=== PATIENT | male | born 1940 | race Caucasian/White ===

== ENCOUNTER 2018-11-25 13:39 | Emergency (ER) | payer MEDICARE, OTHER ==
[2018-11-25] MEDS ORDERED: Lidocaine 1% 10 ML MDV ONE (13:55)
--- NOTE | 2018-11-25 16:38 | EDM.PDOC ---
ED HPI GENERAL MEDICAL PROBLEM - General Chief Complaint: General Stated Complaint: FISH HOOK IN FINGER Time Seen by Provider: 11/25/18 13:52 Source of Information: Reports: Patient, RN History Limitations: Reports: No Limitations - History of Present Illness INITIAL COMMENTS - FREE TEXT/NARRATIVE: 78 yr male presents with fish hook to right fifth finger. States tetanus vaccine in last 4 years. States he was getting the [place] off the hook and the hook went into his finger. He is retired and from [place], [place], comes fishing in [place]. States his is a retired RN and will assist with care of the finger. He is returning home tomorrow. ED ROS GENERAL - Review of Systems Review Of Systems: See Below Constitutional: Reports: No Symptoms Respiratory: Reports: No Symptoms Cardiovascular: Reports: Other (Hx of cardiac stent and is taking blood thinners ). Denies: Chest Pain, Dyspnea on Exertion Skin: Reports: Other (fish hook 5th finger of right hand) Neurological: Reports: No Symptoms Psychiatric: Reports: No Symptoms ED EXAM, GENERAL - Physical Exam Exam: See Below Exam Limited By: No Limitations General Appearance: Alert, No Apparent Distress Throat/Mouth: Normal Voice, No Airway Compromise Head: Atraumatic, Normocephalic Neck: Non-Tender, Full Range of Motion Respiratory/Chest: No Respiratory Distress Cardiovascular: Regular Rate, Rhythm Neurological: Alert, Oriented, Normal Cognition Psychiatric: Normal Affect, Normal Mood Skin Exam: Warm, Dry, Normal Color, Other (fish hook to 5th finger of right hand ) Course - Vital Signs Last Recorded V/S: Last Vital Signs Temp 98.7 F 11/25/18 15:56 Pulse 89 11/25/18 15:56 Resp 20 11/25/18 15:56 BP 150/87 H 11/25/18 15:56 Pulse Ox 97 11/25/18 15:56 - Re-Assessments/Exams Free Text/Narrative Re-Assessment/Exam: 11/25/18 16:35 LE Area cleansed with Povidone and Lidocaine 1% used for anesthesia, locally to hook insertion site. Pt tolerated well. 18 G needle used to loosen tereas of hook and hook was released. Area cleansed again with povidone and saline rinse X 2 completed. Pressure to area, antibiotic oint applied and pressure dressing applied. Recommend to monitor for signs of infection. Keep area clean and dry for 24 hour, then change band aid daily. RTC or ER if any signs of infection noted. Departure - Departure Time of Disposition: 14:30 Disposition: Home, Self-Care 01 Condition: Good Clinical Impression: Fish hook injury of finger of right hand - Discharge Information *PRESCRIPTION DRUG MONITORING PROGRAM REVIEWED*: Not Applicable *COPY OF PRESCRIPTION DRUG MONITORING REPORT IN PATIENT UYEN: Not Applicable Instructions: Wound Care, Adult Referrals: PCP,None [Primary Care Provider] - Forms: ED Department Discharge Additional Instructions: Discharge home. Keep wound clean and dry. Monitor the finger for signs of infection. Follow up in the clinic as needed. Call or return to the ER if you have any questions or concerns. - Assessment/Plan Plan: Recommend to monitor for signs of infection. Keep area clean and dry for 24 hour, then change band aid daily. RTC or ER if any signs of infection noted.
== END 2018-11-25 15:56 | disposition home or self-care (01) ==
LOC: LB.ED 13:39
DX: S60.456A Superficial foreign body of right little finger, initial encounter (principal); W45.8XXA Other foreign body or object entering through skin, initial encounter
CPT/HCPCS: 99282; J2001; 99283